=== PATIENT | male | born 1955 | race Caucasian/White ===

== ENCOUNTER 2017-01-05 12:58 | Inpatient (IN) | payer OTHER ==
[~2017-01-05] VITALS: Ht 180.3 cm; Wt 95.0 kg
--- NOTE | 2017-01-05 13:05 | NUR ---
Pt states he is unable to recall his home medications at this time.
[2017-01-05] MEDS ORDERED: IV NORMAL SALINE 500 ML IV ONE (13:30)
--- NOTE | 2017-01-05 13:39 | NUR ---
PT IS IN ROOM #2B. DR BAKER EVALUATED THE PT.
[2017-01-05 13:41] LABS: BASOPHILS # (AUTO) 0.2 K/uL (0.0-0.2); BASOPHILS % (AUTO) 1.4 % (0.0-2.0); EOSINOPHILS % (AUTO) 0.3 % (0.0-7.0); HEMOGLOBIN 14.3 g/dL (14.0-18.0); LYMPHOCYTES # (AUTO) 2.6 K/uL (0.8-4.8); LYMPHOCYTES % (AUTO) 19.6 % (20.5-51.5); MEAN CORPUSCULAR HEMOGLOBIN 31.1 uug (27.0-31.0); MEAN CORPUSCULAR HGB CONC 32 g/dL (32.0-37.0); MONOCYTES # (AUTO) 0.6 K/uL (0.1-1.30); MONOCYTES % (AUTO) 4.9 % (0.0-11.0); NEUTROPHILS # (AUTO) 9.6 K/uL (1.8-8.9); NEUTROPHILS % (AUTO) 73.8 % (38.5-71.5); PLATELET COUNT (AUTO) 201 K/uL (150-450); RED BLOOD CELL COUNT(AUTO) 4.59 MIL/uL (4.70-6.10); RED CELL DISTRIBUTION WIDTH 16.8 % (11.5-14.5)
[2017-01-05 13:51] LABS: CALCIUM 8.3 mg/dL (8.5-10.1); CREATININE 1.1 mg/dL (0.6-1.3); POTASSIUM 4.2 mmol/L (3.5-5.1)
[2017-01-05 14:01] LABS: LYMPHOCYTES % (MANUAL) 26 % (20-40); MONOCYTES % (MANUAL) 6 % (2-10); NEUTROPHILS % (MANUAL) 68 % (42-75)
[2017-01-05 14:02] LABS: ANISOCYTOSIS 1+; PLATELET ESTIMATE ADEQUATE
[2017-01-05 14:04] LABS: ALBUMIN 3.3 g/dL (3.4-5.0); BILIRUBIN,TOTAL 1.9 mg/dL (0.2-1.0); TOTAL PROTEIN, SERUM 6.8 g/dL (6.4-8.2)
[2017-01-05] MEDS ORDERED: FUROSEMIDE 20 MG/2 ML VIAL IV ONE (14:45)
[2017-01-05] MEDS ORDERED: DILTIAZEM HCL 25 MG IV IV ONE (14:45)
[2017-01-05] MEDS ORDERED: LEVOFLOXACIN 500 MG/D5W 100ML PIGGYBACK IV ONE (15:00)
[2017-01-05] MEDS ORDERED: FUROSEMIDE 40 MG/4 ML VIAL ONE (15:04)
[2017-01-05] MEDS ORDERED: DILTIAZEM HCL 25 MG IV ONE (15:05)
[2017-01-05] MEDS ORDERED: LEVOFLOXACIN 500 MG/D5W 100 ML ONE (15:05)
[2017-01-05 15:36] LABS: *BILIRUBIN,URIN NEGATIVE (NEGATIVE); *BLOOD, URINE NEGATIVE (NEGATIVE); *CLARITY,URINE CLEAR (CLEAR); *COLOR,URINE YELLOW (YELLOW); *KETONES,URINE NEGATIVE (NEGATIVE); *PROTEIN,URINE NEGATIVE (NEGATIVE); LEUKOCYTE ESTERASE ,URINE NEGATIVE (NEGATIVE); NITRITE, URINE NEGATIVE (NEGATIVE); PH,URINE 5.5 (5.0-8.0); UGLUCOSE NEGATIVE (NEGATIVE)
[2017-01-05] MEDS ORDERED: ENOXAPARIN SODIUM 80 MG/0.8 ML DISP.SYRIN SQ ONE (15:37)
[2017-01-05 15:43] LABS: MUCUS,URINE FEW /LPF (0-FEW); SQUAMOUS EPITHELIAL CELL,UR FEW /HPF (NONE SEEN); WBC,URINE NONE SEEN /HPF (0-3)
[2017-01-05 16:00] LABS: CREATINE KINASE MB 3.9 ng/mL (0-5.0)
--- NOTE | 2017-01-05 16:21 | NUR ---
REPORT WAS GIVEN TO WASTE ELIMINATION. PT WAS TRANSFERED TO TELEMETRY ROOM #223.
[2017-01-05 16:45] VITALS: BP 115/79
[2017-01-05] MEDS ORDERED: ONDANSETRON 4 MG/2 ML VIAL IV PRN (16:45)
[2017-01-05] MEDS ORDERED: MORPHINE SULFATE 2 MG/1 ML DISP.SYRIN IV PRN (16:45)
[2017-01-05] MEDS ORDERED: ACETAMINOPHEN 325 MG TABLET PO PRN (16:45)
[2017-01-05] MEDS ORDERED: ZOLPIDEM 5 MG TABLET PO PRN (16:45)
[2017-01-05] MEDS ORDERED: MAGNESIUM HYDROXIDE 30 ML LIQUID UDC PO PRN (16:45)
[2017-01-05] MEDS ORDERED: RIVAROXABAN 15 MG TABLET PO SCH (17:00)
--- NOTE | 2017-01-05 17:00 | NUR ---
NEW PATIENT TO ROOM 223 AWAKE ALERT COOPERATE WELL VS TAKEN STABLE NO FEVER CONTINUE O2 AT 2L /MIN O2 SAT WAS 95% on fall and aspiration precaution call ramírez in reach and bed alarm on
--- NOTE | 2017-01-05 17:30 | NUR ---
DR FRIEDMAN SEEN PATIENT AND NEW ORDER IN CHART EAT DINNER WELL NO SOB OR CHEST PAIN
--- NOTE | 2017-01-05 18:30 | NUR ---
RESTING HEMODYNAMIC STATUS STABLE SAFETY MEASURE PROVIDED CALL DAHL IN REACH
[2017-01-05 18:35] VITALS: BP 115/79
[2017-01-05 20:00] VITALS: BP 118/80
[2017-01-05] MEDS ORDERED: DOCUSATE SODIUM 250 MG CAPSULE PO SCH (21:00)
[2017-01-05] MEDS: DOCUSATE SODIUM 100 MG CAPSULE PO SCH (21:28)
[2017-01-05] MEDS: FUROSEMIDE 20 MG/2 ML VIAL IV SCH (21:33)
[2017-01-06] VITALS: BP 120/79
[2017-01-06 04:00] VITALS: BP 120/80
[2017-01-06] MEDS: PANTOPRAZOLE SODIUM 40 MG TABLET.DR PO SCH (06:37)
[2017-01-06 07:09] LABS: BASOPHILS # (AUTO) 0.2 K/uL (0.0-0.2); BASOPHILS % (AUTO) 1.8 % (0.0-2.0); EOSINOPHILS # (AUTO) 0.1 K/uL (0.0-0.7); EOSINOPHILS % (AUTO) 0.8 % (0.0-7.0); HEMATOCRIT 42.9 % (40.0-50.0); HEMOGLOBIN 13.8 g/dL (14.0-18.0); LYMPHOCYTES # (AUTO) 2.4 K/uL (0.8-4.8); LYMPHOCYTES % (AUTO) 19.8 % (20.5-51.5); MEAN CORPUSCULAR HEMOGLOBIN 31.7 uug (27.0-31.0); MEAN CORPUSCULAR HGB CONC 32 g/dL (32.0-37.0); MEAN CORPUSCULAR VOLUME 98.6 fL (82.0-92.0); NEUTROPHILS # (AUTO) 8.4 K/uL (1.8-8.9); NEUTROPHILS % (AUTO) 69.6 % (38.5-71.5); PLATELET COUNT (AUTO) 171 K/uL (150-450); RED BLOOD CELL COUNT(AUTO) 4.35 MIL/uL (4.70-6.10); RED CELL DISTRIBUTION WIDTH 16.7 % (11.5-14.5); WHITE BLOOD COUNT (AUTO) 12.1 K/uL (4.0-11.2)
[2017-01-06 07:30] VITALS: BP 106/80
[2017-01-06 07:47] LABS: THYROID STIMULATING HORMONE 5.091 mIU/mL (0.358-3.740)
[2017-01-06] MEDS: FUROSEMIDE 20 MG/2 ML VIAL IV SCH ×2 (08:14→21:02)
[2017-01-06] MEDS: RIVAROXABAN 15 MG TABLET PO SCH ×2 (08:17→16:43)
--- NOTE | 2017-01-06 08:30 | NUR ---
AWAKE COOPERATE WELL NO SOB RA O2 SAT WAS 94% ON FALL PRECAUTION CALL DAHL IN REACH
[2017-01-06 08:35] LABS: ALBUMIN 3.1 g/dL (3.4-5.0); BILIRUBIN,TOTAL 1.8 mg/dL (0.2-1.0); CALCIUM 8.4 mg/dL (8.5-10.1); CREATININE 0.9 mg/dL (0.6-1.3); MAGNESIUM 1.8 mg/dL (1.8-2.4); PHOSPHOROUS 2.8 mg/dL (2.5-4.9); POTASSIUM 3.8 mmol/L (3.5-5.1); TOTAL PROTEIN, SERUM 6.6 g/dL (6.4-8.2)
[2017-01-06 10:25] LABS: LYMPHOCYTES % (MANUAL) 6 % (20-40); NEUTROPHILS % (MANUAL) 66 % (42-75)
[2017-01-06 10:26] LABS: ANISOCYTOSIS 1+; MONOCYTES % (MANUAL) 7 % (2-10); PLATELET ESTIMATE ADEQUATE; STOMATOCYTES 2+
--- NOTE | 2017-01-06 11:13 | NUR ---
SMOKING CESSATION- Patient current everyday smoker, patient educated on smoking cessation, refused nicotene patch at this time. continue to educate patient Addendum: 01/06/17 at 1114 by MARYLU COCHRAN RN Amended: Links added.
--- NOTE | 2017-01-06 12:01 | NUR ---
WOUND CARE CONSULT: PT PRESENTS WITH MULTIPLE BRUISES AND DRY ABRASIONS WITH RT ELBOW SWELLING, PRESENT ON ADMISSION. DEFER TO MD. PT AMBULATORY, CONTINENT AND INDEPENDENT WITH BED MOBILITY. WILL SEE PRN. GARNER IN AGREEMENT WITH PLAN OF CARE. Addendum: 01/06/17 at 1202 by KYLEE HOGAN RN Amended: Links added.
[2017-01-06 12:18] VITALS: BP 106/70
[2017-01-06 16:13] VITALS: BP 115/63
--- NOTE | 2017-01-06 17:00 | NUR ---
RESTING WELL NO RESPIRATORY DISTRESS SAFETY MEASURE PROVIDED CALL DAHL WITHIN REACH
--- NOTE | 2017-01-06 18:18 | NUR ---
Dr Sanchez aware of current lab values including TSH level, orders received and carried out Levaquin 500mg IV daily, first dose now.
[2017-01-06] MEDS: LEVOFLOXACIN 500 MG/D5W 500 MG in PREMIXED 1 EACH IV SCH (18:30)
[2017-01-06 20:00] VITALS: BP 121/88
[2017-01-06] MEDS: DOCUSATE SODIUM 100 MG CAPSULE PO SCH (21:02)
[2017-01-06] MEDS ORDERED: LEVOFLOXACIN 500 MG/D5W 100 ML ONE (21:08)
--- NOTE | 2017-01-06 23:31 | NUR ---
nsg: pt received fr lea RN. pt a/o x 4, in bed. no acute distress noted. denies discomfort. call light within reach. cont to monitor.
[2017-01-07 05:00] VITALS: BP 114/86
[2017-01-07] MEDS: PANTOPRAZOLE SODIUM 40 MG TABLET.DR PO SCH (06:23)
--- NOTE | 2017-01-07 06:27 | NUR ---
nsg: pt awake, no acute distress noted. sitting on the chair. denies pain, sob. cont to monitor.
[2017-01-07 06:52] LABS: BASOPHILS # (AUTO) 0.2 K/uL (0.0-0.2); BASOPHILS % (AUTO) 1.5 % (0.0-2.0); EOSINOPHILS # (AUTO) 0.1 K/uL (0.0-0.7); HEMATOCRIT 44.4 % (40.0-50.0); HEMOGLOBIN 14.1 g/dL (14.0-18.0); LYMPHOCYTES # (AUTO) 1.7 K/uL (0.8-4.8); LYMPHOCYTES % (AUTO) 15.5 % (20.5-51.5); MEAN CORPUSCULAR HGB CONC 32 g/dL (32.0-37.0); MEAN CORPUSCULAR VOLUME 97.9 fL (82.0-92.0); MONOCYTES # (AUTO) 1.1 K/uL (0.1-1.30); MONOCYTES % (AUTO) 10.3 % (0.0-11.0); NEUTROPHILS # (AUTO) 7.8 K/uL (1.8-8.9); NEUTROPHILS % (AUTO) 71.7 % (38.5-71.5); PLATELET COUNT (AUTO) 175 K/uL (150-450); RED BLOOD CELL COUNT(AUTO) 4.53 MIL/uL (4.70-6.10); RED CELL DISTRIBUTION WIDTH 16.5 % (11.5-14.5); WHITE BLOOD COUNT (AUTO) 10.9 K/uL (4.0-11.2)
--- NOTE | 2017-01-07 07:05 | NUR ---
PATIENT RECEIVED IN ROOM RESTING WITH EYES CLOSED IN NO ACUTE DISTRESS. OXYGEN ON 2L/NC. RESPIRATIONS EVEN AND UNLABORED. CALL LIGHT AT REACH.
[2017-01-07 07:30] LABS: CALCIUM 8.2 mg/dL (8.5-10.1); CREATININE 0.8 mg/dL (0.6-1.3); MAGNESIUM 1.9 mg/dL (1.8-2.4); PHOSPHOROUS 3.4 mg/dL (2.5-4.9); POTASSIUM 3.8 mmol/L (3.5-5.1)
[2017-01-07] MEDS ORDERED: CARVEDILOL 3.125 MG TABLET PO SCH (08:00)
--- NOTE | 2017-01-07 08:10 | NUR ---
LAB RESULT [id number] FRIEDMAN. NO NEW ORDERS AT THIS TIME.
[2017-01-07] MEDS: FUROSEMIDE 20 MG/2 ML VIAL IV SCH ×2 (08:29→21:02)
[2017-01-07] MEDS ORDERED: MIRALAX 17 GM POWD.PACK PO SCH (09:00)
[2017-01-07] MEDS ORDERED: LOSARTAN POTASSIUM 25 MG TABLET PO SCH (09:00)
[2017-01-07] MEDS ORDERED: RIVAROXABAN 15 MG TABLET PO SCH (09:00)
[2017-01-07] MEDS ORDERED: POTASSIUM CHLORIDE 20 MEQ in IV D5/ 0.9% NACL 1,000 ML IV PRN (09:15)
[2017-01-07] MEDS ORDERED: ACETAMINOPHEN 650 MG SUPP.RECT RC PRN (09:15)
[2017-01-07 09:35] LABS: ALBUMIN 3.1 g/dL (3.4-5.0); BILIRUBIN,DIRECT 0.7 mg/dL (0.0-0.2); BILIRUBIN,TOTAL 1.9 mg/dL (0.2-1.0); TOTAL PROTEIN, SERUM 6.7 g/dL (6.4-8.2); URIC ACID 8.4 mg/dL (3.5-7.2)
[2017-01-07 10:31] LABS: BAND % (MANUAL) 5 % (0-10); EOSINOPHILS % (MANUAL) 2 % (0-8); LYMPHOCYTES % (MANUAL) 23 % (20-40); MONOCYTES % (MANUAL) 8 % (2-10); NEUTROPHILS % (MANUAL) 62 % (42-75)
[2017-01-07 10:32] LABS: ANISOCYTOSIS 1+; STOMATOCYTES 2+
[2017-01-07 11:53] VITALS: BP 97/73
[2017-01-07] MEDS: METRONIDAZOLE 500 MG/NS 100ML 500 MG in PREMIXED 1 EACH IV SCH ×2 (15:25→21:26)
[2017-01-07 16:18] VITALS: BP 95/59
[2017-01-07] MEDS ORDERED: RIVAROXABAN 10 MG TABLET PO SCH (18:00)
--- NOTE | 2017-01-07 18:40 | NUR ---
PATIENT OUT FOR [facility] SCAN AT THIS TIME.
[2017-01-07 20:00] VITALS: BP 112/69
--- NOTE | 2017-01-07 20:00 | NUR ---
PATIENT BACK FROM [facility] SCAN IN FAIR CONDITION, ATE DINNER AND DRINK FLUIDS, NO SOB, NO CHEST PAIN NOTED, CALL LIGHT WITHIN REACH.
[2017-01-07] MEDS: LEVOFLOXACIN 500 MG/D5W 500 MG in PREMIXED 1 EACH IV SCH (20:45)
[2017-01-07] MEDS: DOCUSATE SODIUM 100 MG CAPSULE PO SCH (20:46)
--- NOTE | 2017-01-08 04:29 | NUR ---
PATIENT SLEEP INTERMITENTLY NO SOB, NO CHEST PAIN NOTED, PATIENT NON COMPLIANT WITH FLUIDS RESTRICTIONS, PATIENT REQUEST FOR JUICES MULTIPLE TIMES, TEACH PATIENT ABOUT THE IMPORTANCE OF FLUIDS RESTRICTIONS, ALERT ORIENTED, UNDERSTAND BUT STILL DO THINGS HE PLEASE. ON O2 2LNC, OXYGEN SAT WNL, NO S/S OF DISTRESS.
[2017-01-08 05:00] VITALS: BP 98/67
[2017-01-08] MEDS: METRONIDAZOLE 500 MG/NS 100ML 500 MG in PREMIXED 1 EACH IV SCH ×3 (05:08→21:47)
[2017-01-08 07:03] LABS: BILIRUBIN,TOTAL 1.6 mg/dL (0.2-1.0); CALCIUM 8.3 mg/dL (8.5-10.1); CREATININE 0.8 mg/dL (0.6-1.3); MAGNESIUM 1.6 mg/dL (1.8-2.4); PHOSPHOROUS 3.4 mg/dL (2.5-4.9); POTASSIUM 4.1 mmol/L (3.5-5.1); TOTAL PROTEIN, SERUM 6.9 g/dL (6.4-8.2)
[2017-01-08 07:38] LABS: BASOPHILS # (AUTO) 0.1 K/uL (0.0-0.2); EOSINOPHILS # (AUTO) 0.1 K/uL (0.0-0.7); EOSINOPHILS % (AUTO) 1.2 % (0.0-7.0); HEMATOCRIT 45.3 % (40.0-50.0); HEMOGLOBIN 15.3 g/dL (14.0-18.0); LYMPHOCYTES # (AUTO) 1.5 K/uL (0.8-4.8); LYMPHOCYTES % (AUTO) 13.5 % (20.5-51.5); MEAN CORPUSCULAR HEMOGLOBIN 33.2 uug (27.0-31.0); MEAN CORPUSCULAR HGB CONC 34 g/dL (32.0-37.0); MEAN CORPUSCULAR VOLUME 98.2 fL (82.0-92.0); MONOCYTES # (AUTO) 1.1 K/uL (0.1-1.30); MONOCYTES % (AUTO) 10.2 % (0.0-11.0); NEUTROPHILS # (AUTO) 8.1 K/uL (1.8-8.9); NEUTROPHILS % (AUTO) 74.1 % (38.5-71.5); PLATELET COUNT (AUTO) 175 K/uL (150-450); RED BLOOD CELL COUNT(AUTO) 4.61 MIL/uL (4.70-6.10); RED CELL DISTRIBUTION WIDTH 16.3 % (11.5-14.5); WHITE BLOOD COUNT (AUTO) 10.9 K/uL (4.0-11.2)
[2017-01-08] MEDS ORDERED: FUROSEMIDE 20 MG/2 ML VIAL IV SCH (09:00)
[2017-01-08] MEDS: PANTOPRAZOLE SODIUM 40 MG VIAL IV SCH (09:16)
[2017-01-08] MEDS: FUROSEMIDE 40 MG/4 ML VIAL IV SCH (09:16)
[2017-01-08 10:14] LABS: BAND % (MANUAL) 4 % (0-10); LYMPHOCYTES % (MANUAL) 18 % (20-40); MONOCYTES % (MANUAL) 7 % (2-10); NEUTROPHILS % (MANUAL) 71 % (42-75)
[2017-01-08 10:17] LABS: ANISOCYTOSIS 1+; PLATELET ESTIMATE ADEQU
[2017-01-08 10:18] LABS: STOMATOCYTES 1+; TARGET CELLS 1+
[2017-01-08 10:19] LABS: PAPPENHEIMER BODIES 1+
[2017-01-08 12:10] VITALS: BP 106/74
[2017-01-08 16:17] VITALS: BP 119/73
[2017-01-08] MEDS: MAGNESIUM SULFATE/D5W 100 ML IV SCH ×2 (16:40→16:49)
[2017-01-08] MEDS ORDERED: CARV12.5 PO (17:03)
[2017-01-08] MEDS ORDERED: PHYTONADIONE 10 MG/1 ML AMPUL SQ ONE (18:15)
--- NOTE | 2017-01-08 18:34 | NUR ---
NURSING NOTES UNABLE TO ADMINISTER MAGNESIUM ORDERED. THE MED IS GREYED OUT IN THE PYXIS UNABLE TO RETRIEVE IT. CALLED PHARMACY THEY SAID THEY WILL CHECK INTO IT MED STILL NOT AVAILABLE ON LAST CHECK.
[2017-01-08] MEDS ORDERED: LEVOFLOXACIN 500 MG/D5W 100 ML ONE (18:46)
[2017-01-08] MEDS: LEVOFLOXACIN 500 MG/D5W 500 MG in PREMIXED 1 EACH IV SCH (18:47)
--- NOTE | 2017-01-08 19:30 | NUR ---
RECEIVED CALL FROM DR. BURKS REGARDING SURGERY IN AM. RECEIVED NEW ORDERS, NOTED AND CARRIED OUT. DIRECTOR FIXED INCOME NOTIFIED.
[2017-01-08 20:00] VITALS: BP 109/71
--- NOTE | 2017-01-08 20:00 | NUR ---
RECEIVED PATIENT AWAKE, SITTING IN CHAIR AT BEDSIDE. PATIENT IS A/O X4. DENIES PAIN OR DISCOMFORT. NO RESP. DISTRESS NOTED. VSS. NO RESP. DISTRESS NOTED. ON O2 2L NC. CALL LIGHT IN REACH. ALL NEEDS ATTENDED. WILL CONTINUE TO MONITOR.
[2017-01-08] MEDS: DOCUSATE SODIUM 100 MG CAPSULE PO SCH (20:09)
--- NOTE | 2017-01-08 20:30 | NUR ---
NEW IV HEPLOCK STARTED TO RIGHT FA #20 GAUGE. WILL CONTINUE TO MONITOR.
[2017-01-08] MEDS: ZOLPIDEM 5 MG TABLET PO PRN (23:28)
[2017-01-08] MEDS ORDERED: ZOLPIDEM 5 MG TABLET ONE (23:31)
--- NOTE | 2017-01-08 23:35 | NUR ---
PATIENT AWAKE IN BED. ASKING FOR SLEEPING PILL. PATIENT GIVEN AMBIEN 5MG PO PRN FOR SLEEP. PATIENT EDUCATED ON PROCEDURE IN AM. PATIENT WILL BE NPO AFTER MIDNIGHT. VERBALIZED UNDERSTANDING. CALL LIGHT IN REACH. ALL NEEDS ATTENDED. WILL CONTINUE TO MONITOR.
[2017-01-09 04:00] VITALS: BP 109/72
[2017-01-09] MEDS: METRONIDAZOLE 500 MG/NS 100ML 500 MG in PREMIXED 1 EACH IV SCH ×3 (05:35→21:32)
--- NOTE | 2017-01-09 06:04 | NUR ---
PATIENT AWAKE IN BED. KEPT NPO SINCE MIDNIGHT ORDERED. PATIENTS JEWELRY AND PLASTIC BAG WITH PHONE, CREDIT CARDS PLACED AND LOCKED IN CONTRABAND LOCKER #5. DIRECT RESPONSE CONSULTANT NOTIFIED. VSS. PATIENT SLEPT WELL THROUGHOUT THE NIGHT. DENIES PAIN. CALL LIGHT IN REACH. ALL NEEDS ATTENDED. WILL CONTINUE TO MONITOR.
--- NOTE | 2017-01-09 07:00 | NUR ---
PT IS LAYING IN BED COMFORTABLY. NO S/S OF RESPIRATORY DISTRESS NOTED. O2 AT 2L NC. NO PAIN NOTED. ALL SAFETY NEEDS ARE MET. IV INTACT/PATENT. WILL CONTINUE TO MONITOR.
[2017-01-09 07:01] LABS: BASOPHILS # (AUTO) 0.1 K/uL (0.0-0.2); BASOPHILS % (AUTO) 1.5 % (0.0-2.0); EOSINOPHILS # (AUTO) 0.1 K/uL (0.0-0.7); EOSINOPHILS % (AUTO) 1.2 % (0.0-7.0); HEMATOCRIT 45.6 % (40.0-50.0); HEMOGLOBIN 14.7 g/dL (14.0-18.0); LYMPHOCYTES # (AUTO) 1.7 K/uL (0.8-4.8); LYMPHOCYTES % (AUTO) 17.1 % (20.5-51.5); MEAN CORPUSCULAR HEMOGLOBIN 31.8 uug (27.0-31.0); MEAN CORPUSCULAR HGB CONC 32 g/dL (32.0-37.0); MEAN CORPUSCULAR VOLUME 98.5 fL (82.0-92.0); MONOCYTES # (AUTO) 1.4 K/uL (0.1-1.30); MONOCYTES % (AUTO) 14.2 % (0.0-11.0); NEUTROPHILS # (AUTO) 6.7 K/uL (1.8-8.9); PLATELET COUNT (AUTO) 173 K/uL (150-450); RED BLOOD CELL COUNT(AUTO) 4.63 MIL/uL (4.70-6.10); RED CELL DISTRIBUTION WIDTH 16.5 % (11.5-14.5)
[2017-01-09 07:05] LABS: ALBUMIN 2.9 g/dL (3.4-5.0); BILIRUBIN,TOTAL 1.4 mg/dL (0.2-1.0); CALCIUM 8.4 mg/dL (8.5-10.1); CREATININE 0.8 mg/dL (0.6-1.3); MAGNESIUM 1.7 mg/dL (1.8-2.4); POTASSIUM 4.3 mmol/L (3.5-5.1); TOTAL PROTEIN, SERUM 6.7 g/dL (6.4-8.2)
[2017-01-09] MEDS ORDERED: BUPIVACAINE 0.25% 30 ML VIAL ONE (07:50)
[2017-01-09] MEDS: PANTOPRAZOLE SODIUM 40 MG VIAL IV SCH (08:11)
[2017-01-09] MEDS: FUROSEMIDE 40 MG/4 ML VIAL IV SCH (08:11)
--- NOTE | 2017-01-09 08:35 | NUR ---
PT IS WAS TAKEN BY OR NURSE TO OR. PT WAS ABLE TO URINATE, O2 AT 2L NC ON. NO S.S OF RESPIRATORY DISTRESS NOTED. NO PAIN NOTED. ALL SAFETY NEEDS ARE MET. PT WANTED TO TAKE EYE GLASSES WITH HIM.
[2017-01-09] MEDS ORDERED: FENTANYL CITRATE 250 MCG/5 ML AMPUL ONE (09:40)
[2017-01-09] MEDS ORDERED: SUCCINYLCHOLINE CHLORIDE 200 MG/10 ML VIAL ONE (09:41)
[2017-01-09] MEDS ORDERED: ROCURONIUM BROMIDE 50 MG/5 ML VIAL ONE (09:41)
[2017-01-09] MEDS: MAGNESIUM SULFATE/D5W 100 ML IV SCH ×2 (10:27→11:31)
--- NOTE | 2017-01-09 11:17 | NUR ---
PER DR. PAYAM BELCHER TO APPLY ABDOMINAL BINDER TO AID THE UMBILICAL HERNIA PAIN.
--- NOTE | 2017-01-09 11:36 | NUR ---
DR. LAL IS MADE AWARE OF PT'S CANCELLATION OF THE SURGERY AND HR, BINDER IS APPLIED.
[2017-01-09 11:53] VITALS: BP 122/69
[2017-01-09 15:46] VITALS: BP 108/69
--- NOTE | 2017-01-09 16:21 | NUR ---
Spoke with Maryan [Case Manger [phone]] who is initiating a transfer to [facility] for cardiac catherization. This roving court reporter gave the nurses stations phone number to Maryan in case a bed becomes available after hours. Dr. Urias made aware and charge nurse, Sheila. TEN/ALMAS to follow up. Addendum: 01/09/17 at 1630 by ANTHONY VIDES [facility] Spoke with patient who is agreeable with the transfer.
[2017-01-09] MEDS: LEVOFLOXACIN 500 MG/D5W 500 MG in PREMIXED 1 EACH IV SCH (17:41)
[2017-01-09 19:00] VITALS: BP 120/83
--- NOTE | 2017-01-09 19:02 | NUR ---
pt is sitting in bed comfortably. no s/s of respiratory distress noted. Pt is on O2 at 2L. No pain noted. All safety needs are met.
--- NOTE | 2017-01-09 20:00 | NUR ---
RECEIVED PATIENT AWAKE IN BED, WATCHING TV. PATIENT IS A/O X4. DENIES ANY PAIN OR DISCOMFORT. NO RESP. DISTRESS NOTED. ON O2 2L NC SATING WELL. HEPLOCK INTACT AND PATENT NOTED TO RIGHT FA #20 GAUGE. CALL LIGHT IN REACH. ALL NEEDS ATTENDED. WILL CONTINUE TO MONITOR.
[2017-01-09] MEDS: DOCUSATE SODIUM 100 MG CAPSULE PO SCH (20:33)
[2017-01-10 04:00] VITALS: BP 109/82
[2017-01-10] MEDS: METRONIDAZOLE 500 MG/NS 100ML 500 MG in PREMIXED 1 EACH IV SCH ×3 (05:47→21:49)
--- NOTE | 2017-01-10 06:08 | NUR ---
PATIENT ASLEEP IN BED. EASILY AROUSABLE. SLEPT WELL THROUGHOUT THE NIGHT, DENIES PAIN OR DISCOMFORT. NO RESP. DISTRESS NOTED. H/L INTACT AND PATENT. CALL LIGHT IN REACH. ALL NEEDS ATTENDED. WILL CONTINUE TO MONITOR.
[2017-01-10] MEDS: FUROSEMIDE 40 MG TABLET PO SCH (08:27)
[2017-01-10] MEDS: PANTOPRAZOLE SODIUM 40 MG VIAL IV SCH (08:27)
[2017-01-10] MEDS: CARVEDILOL 3.125 MG TABLET PO SCH ×2 (08:28→17:42)
[2017-01-10 11:38] VITALS: BP 95/65
--- NOTE | 2017-01-10 16:16 | NUR ---
Spoke to Alma [ [phone]], TEN from [facility] about the transfer and informed her that Dr. Sanchez had already spoken to the admitting MD at [facility]. She will follow-up and call the RN station once a bed is available. Updated the storage battery charger, Chacha.
[2017-01-10 16:19] VITALS: BP 90/50
[2017-01-10] MEDS: LEVOFLOXACIN 500 MG/D5W 500 MG in PREMIXED 1 EACH IV SCH (17:39)
[2017-01-10 20:00] VITALS: BP 91/67
[2017-01-10] MEDS: DOCUSATE SODIUM 100 MG CAPSULE PO SCH (20:24)
[2017-01-11] MEDS: ZOLPIDEM 5 MG TABLET PO PRN (00:09)
[2017-01-11] MEDS: METRONIDAZOLE 500 MG/NS 100ML 500 MG in PREMIXED 1 EACH IV SCH (05:28)
--- NOTE | 2017-01-11 05:43 | NUR ---
PT IN BED, RESTING, SLEPT INTERMITTENTLY DURING SHIFT, WAS GIVEN AMBIEN REQUESTED AND PRESCRIBED. DENIES PAIN. SNACKS GIVEN REQUESTED. SAFETY MAINTAINED. CALL LIGHT WITHIN REACH.
[2017-01-11] MEDS ORDERED: PANTOPRAZOLE SODIUM 40 MG TABLET.DR PO SCH (07:00)
[2017-01-11 07:01] LABS: BASOPHILS # (AUTO) 0.1 K/uL (0.0-0.2); BASOPHILS % (AUTO) 0.6 % (0.0-2.0); EOSINOPHILS # (AUTO) 0.2 K/uL (0.0-0.7); EOSINOPHILS % (AUTO) 1.9 % (0.0-7.0); HEMATOCRIT 45.8 % (40.0-50.0); LYMPHOCYTES # (AUTO) 2.3 K/uL (0.8-4.8); LYMPHOCYTES % (AUTO) 23.7 % (20.5-51.5); MEAN CORPUSCULAR HEMOGLOBIN 31.9 uug (27.0-31.0); MEAN CORPUSCULAR HGB CONC 33 g/dL (32.0-37.0); MEAN CORPUSCULAR VOLUME 97.7 fL (82.0-92.0); MONOCYTES # (AUTO) 1.2 K/uL (0.1-1.30); MONOCYTES % (AUTO) 12.6 % (0.0-11.0); NEUTROPHILS % (AUTO) 61.2 % (38.5-71.5); PLATELET COUNT (AUTO) 158 K/uL (150-450); RED BLOOD CELL COUNT(AUTO) 4.69 MIL/uL (4.70-6.10); RED CELL DISTRIBUTION WIDTH 16.9 % (11.5-14.5); WHITE BLOOD COUNT (AUTO) 9.8 K/uL (4.0-11.2)
[2017-01-11 07:08] LABS: BILIRUBIN,TOTAL 1.2 mg/dL (0.2-1.0); CALCIUM 8.7 mg/dL (8.5-10.1); CREATININE 0.8 mg/dL (0.6-1.3); MAGNESIUM 1.7 mg/dL (1.8-2.4); PHOSPHOROUS 3.8 mg/dL (2.5-4.9); POTASSIUM 4.4 mmol/L (3.5-5.1); TOTAL PROTEIN, SERUM 6.9 g/dL (6.4-8.2)
[2017-01-11] MEDS: CARVEDILOL 3.125 MG TABLET PO SCH (08:00)
[2017-01-11] MEDS: FUROSEMIDE 40 MG TABLET PO SCH (08:21)
[2017-01-11] MEDS ORDERED: MAGNESIUM OXIDE 400 MG TABLET PO ONE (09:30)
--- NOTE | 2017-01-11 11:00 | NUR ---
D/C TRANSFER TO [facility] EXPLAINED TO PATIENT TODAY ,VERBALIZES UNDERSTAND AND SIGNS D/C SHEET HL INTACT LEFT HAND #22 NO SOB OR PAIN VS STABLE
[2017-01-11] MEDS ORDERED: Docusate Sodium PO (11:10)
[2017-01-11] MEDS ORDERED: PANT40TA2 PO (11:10)
[2017-01-11] MEDS ORDERED: CARV3.122 PO (11:10)
[2017-01-11] MEDS ORDERED: Zolpidem Tartrate PO (11:10)
[2017-01-11] MEDS ORDERED: Ondansetron Hcl/Pf IV (11:10)
[2017-01-11] MEDS ORDERED: Morphine Sulfate IV (11:10)
[2017-01-11] MEDS ORDERED: Furosemide PO (11:10)
[2017-01-11 11:53] VITALS: BP 109/79
--- NOTE | 2017-01-11 12:40 | NUR ---
TRANSFER TO [facility] WITH HIS BELONGING VIA AMBULANCE CONDITION STABLE
== END 2017-01-11 13:30 | DRG 139 ==
LOC: ER 12:58 → TELE 16:18 → MED 01-06 19:55
PROVIDERS: ADMIT Internal Medicine; ATTEND Internal Medicine
DX: J18.9 Pneumonia, unspecified organism (principal); N17.0 Acute kidney failure with tubular necrosis; I50.43 Acute on chronic combined systolic (congestive) and diastolic (congestive) heart failure; K80.00 Calculus of gallbladder with acute cholecystitis without obstruction; I42.9 Cardiomyopathy, unspecified; R55 Syncope and collapse; I27.2 Other secondary pulmonary hypertension; S09.90XA Unspecified injury of head, initial encounter; I48.2 Chronic atrial fibrillation; K74.60 Unspecified cirrhosis of liver; I48.91 Unspecified atrial fibrillation; K42.9 Umbilical hernia without obstruction or gangrene; M10.9 Gout, unspecified; I25.10 Atherosclerotic heart disease of native coronary artery without angina pectoris; F12.90 Cannabis use, unspecified, uncomplicated; E78.5 Hyperlipidemia, unspecified; M70.31 Other bursitis of elbow, right elbow; Z91.19 Patient's noncompliance with other medical treatment and regimen; R79.89 Other specified abnormal findings of blood chemistry; R29.6 Repeated falls; Z87.891 Personal history of nicotine dependence; I36.1 Nonrheumatic tricuspid (valve) insufficiency; I34.0 Nonrheumatic mitral (valve) insufficiency; I35.1 Nonrheumatic aortic (valve) insufficiency; J44.9 Chronic obstructive pulmonary disease, unspecified; F10.21 Alcohol dependence, in remission; B18.2 Chronic viral hepatitis C; B18.1 Chronic viral hepatitis B without delta-agent; R73.03 Prediabetes; S00.81XA Abrasion of other part of head, initial encounter; X58.XXXA Exposure to other specified factors, initial encounter; Y93.9 Activity, unspecified; Y92.009 Unspecified place in unspecified non-institutional (private) residence as the place of occurrence of the external cause; Y99.9 Unspecified external cause status
CPT/HCPCS: 36415; 70030-TC; 70450; 71020; 73080; 76700; 78445; 83735; 84100; 84443; 84550; 85025; 85610; 87040; 93005; 93307; 97001; 97116; 97530; A4663; A9537; C9113; J0330; J1650; J1940; J1956; J3010; J3430; J3475; J3480; J3490; J7040; J7042; J7050